=== PATIENT | male | born 1995 ===

== ENCOUNTER 2021-03-20 19:58 | Observation (INO) ==
[2021-03-20 20:34] LABS: Basophils # (auto) 0.04 K/uL (0-0.2); Basophils % (auto) 0.4 %; Eosinophils # (auto) 0.08 K/uL (0-0.5); Eosinophils % (auto) 0.8 %; Hematocrit (blood only) 45.6 % (42-52); Hemoglobin 15.3 g/dL (14.0-18.0); Immature Granulocytes # (auto) 0.04 K/uL (0.00-0.02); Immature Granulocytes % (auto) 0.4 %; Lymphocytes # (auto) 1.87 K/uL (1.2-3.4); Lymphocytes % (auto) 18.5 %; Mean Corpuscular Hemoglobin 28.6 pg (25-34); Mean Corpuscular Hgb Conc 33.6 g/dL (32-36); Mean Corpuscular Volume 85.2 fL (80-100); Monocytes # (auto) 0.69 K/uL (0.11-0.59); Monocytes % (auto) 6.8 %; Neutrophils # (auto) 7.38 K/uL (1.4-6.5); Neutrophils % (auto) 73.1 %; Platelet Count 370 K/uL (130-400); RDW Coefficient of Variation 13.4 % (11.5-14.5); RDW Standard Deviation 41.7 fL (36.4-46.3); Red Blood Count 5.35 M/uL (4.7-6.1)
[2021-03-20 20:45] LABS: Partial Thromboplastin Ratio 1.1; Partial Thromboplastin Time 27.9 Seconds (21.0-31.0); Prothrombin Time 10.4 Seconds (9.0-12.0)
--- NOTE | 2021-03-20 20:51 | XRay Report ---
XR chest 1V portable CLINICAL HISTORY: Chest Pain COMPARISON STUDY: No previous studies for comparison. FINDINGS: Lung volumes are normal. Lungs are clear. There is no pneumothorax or pleural effusion. The re is borderline enlargement of the cardiac silhouette. Mediastinal contours are normal. There is no evidence for pulmonary edema. IMPRESSION: 1. No acute cardiopulmonary findings. 2. Borderline enlargement of the cardiac silhouette. ACT 112: Negative or not required by law. Electronically signed by: Hiram Prescott M.D. 03/20/2021 8:50 PM
[2021-03-20 20:57] LABS: Alanine Aminotransferase 89 U/L (12-78); Aspartate Aminotransferase 49 U/L (15-37); BUN Creatinine Ratio 7.7 (10-20); Blood Urea Nitrogen 9 mg/dl (7-18); Calcium 9.4 mg/dl (8.5-10.1); Carbon Dioxide 26 mmol/L (21-32); Chloride 105 mmol/L (98-107); Creatinine Clr Calc Pharmacy 113.8 ml/min; Est GFR (African American) 103.4 ml/min; Est GFR (Non-African American) 89.2 ml/min; Glucose 114 mg/dl (70-99); Potassium 3.3 mmol/L (3.5-5.1); Sodium 137 mmol/L (136-145)
[2021-03-20 21:02] LABS: Albumin Globulin Ratio 0.9 (0.9-2); Alkaline Phosphatase 85 U/L (45-117); Bilirubin,Total 0.6 mg/dl (0.2-1); Globulin 4.3 gm/dl (2.5-4.0); Total Protein 8.3 gm/dl (6.4-8.2); Troponin I < 0.015 ng/ml (0-0.045)
[2021-03-20] MEDS ORDERED: METOPROLOL TARTRATE 1 MG/ML VIAL IV STA (21:19)
[2021-03-20] MEDS ORDERED: SODIUM CHLORIDE 0.9% 1000ML 500 ML IV ONE (21:19)
--- NOTE | 2021-03-20 21:20 | Emergency Department Note ---
Impression & Plan Precordial chest pain, SOB (shortness of breath), Abnormal ECG, Hypertension, Hypokalemia ED Provider Note NAME: ROMAIN BELLE AGE: 25 SEX: M : 1995 ARRIVES VIA: Walk-In INFORMANT: [Patient] ED PROVIDER(S): [Leonel Melendez MD] CHIEF COMPLAINT: Chest pain HISTORY OF PRESENT ILLNESS: The patient is a 25-year-old male who presents with mid sternal superior chest pain that radiates to the back. The pain is a 6/10 and has been with him all day since he woke up this morning, for over 12 hours. The pain does worsen if he climbs the stairs and he is slightly short of breath. There has been no cough. He has not had a fever. He has no known cardiac or lung history. The patient states that he was tested for Covid 2 days ago and was negative. The patient was told once before that his blood pressure was high, he is not taking medication for blood pressure though. REVIEW OF SYSTEMS: See HPI for pertinent positives and negatives. A total of ten systems were reviewed and were otherwise negative. PMHx/PSHx: See Below SOCIAL HISTORY: See Below. PHYSICAL EXAM: GENERAL: Patient is in no acute distress. HEENT: No acute trauma, normocephalic atraumatic, mucous membranes moist, no nasal congestion, no scleral icterus. NECK: No stridor, no adenopathy, no meningismus, trachea is midline. LUNGS: Clear to auscultation bilaterally, no wheeze, no rhonchi, breath sounds equal. HEART: Subtle systolic murmur, irregular rhythm, mildly tachycardic. Chest: Nontender chest wall. ABDOMEN: Soft, nontender, bowel sounds positive, no hernias, no peritonitis. EXTREMITIES: No cyanosis or edema, full range of motion of all the joints without pain or difficulty, no signs for acute trauma. NEUROLOGIC: Oriented x 3, no acute motor or sensory deficits, no focal weakness. SKIN: No rash, no jaundice, no diaphoresis. DIFFERENTIAL DIAGNOSIS: Cardiac ischemia, aortic dissection, pulmonary embolism, pneumothorax, pneumonia, pericarditis, myocarditis, esophageal rupture, GERD, cholecystitis, pancreatitis, musculoskeletal, as well as other pathologies. EMERGENCY DEPARTMENT COURSE/PROCEDURES: ECG: Indication was chest pain. The ECG shows what appears to be a sinus rhythm with type I second-degree AV block. The rate is 85. There are some inverted T waves in the inferior leads. There is no ST elevation. QTc is 454. No old ECGs available for comparison. Repeat EKG: Indication was chest pain. The ECG shows a sinus rhythm with a first-degree AV block. The rate is 83. There are some inverted T waves in the inferior leads as well as the lateral leads. There is no ST elevation. No PACs or PVCs. The QTc is 439. Compared to an ECG from earlier today, the type I second-degree AV block is no longer present. Continuous Cardiac Monitoring: An order was placed for continuous cardiac monitoring. The monitor shows a rate of 94 with sinus rhythm with a first- degree AV block and PACs. Critical Care Note: I have personally spent 51 minutes of critical care time in the direct management of this patient. This includes bedside care, interpretation of diagnostic studies, and testing, discussion with consultants, patient, and family members, and other required patient management activities. This 51 minutes is in excess of all separately billable procedures. MEDICAL DECISION MAKING: There is no leukocytosis or concerning anemia. There is a normal platelet count. No coagulopathy. Potassium was somewhat low at 3.3. No kidney failure. There were some subtle liver enzyme elevations however, the bilirubin was normal. Patient appeared to be in a euthyroid state. Lyme disease testing returned negative. ECG initially showed a sinus rhythm with a type I second-degree AV block. Repeat EKG later showed a sinus rhythm with a long first-degree AV block. Both ECG showed some inverted T waves, no ST elevation. Cardiac enzyme testing x1 is not consistent with acute cardiac injury. Chest x- ray did not show CHF or pneumonia. Chest CT did not show PE or evidence for aortic dissection. There was no pneumonia. The patient presents with chest pain which I cannot reproduce. He was short of breath. He has an abnormal EKG. He presented hypertensive. There were some rhythm disturbances as noted above. I discussed the case with cardiology. The patient is being hospitalized for further work-up, care and monitoring. The patient was given IV potassium and IV saline. He was given a dose of IV Lopressor. After the IV Lopressor, his blood pressure improved, his type I second-degree AV block resolved and a first-degree AV block was noted. I spoke to the patient, I talked with case management. The on-call hospitalist was consulted. Past Med/Surg History Medical History Hypertension Social History Smoking Status: Never smoker Feels Safe at Home: Yes Allergies Allergies Allergy/AdvReac Type Severity Reaction Status Date / Time Penicillins AdvReac Unknown Unverified 03/20/21 21:41 Home Meds Home Medications Medication Instructions Recorded Confirmed fluoxetine 20 mg capsule 40 mg PO DAILY 03/20/21 03/20/21 Results & Data (ED) Vital Signs Vital Signs - 24 hr 03/20/21 20:03 03/20/21 21:19 03/20/21 23:00 Temperature 37.2 C Temperature Source Temporal Artery Scan Pulse Rate 102 H Pulse Rate [Right] 94 H 81 Respiratory Rate 16 18 20 Respiratory Effort / Characteristics Non-Labored Non-Labored Spontaneous Respiratory Depth Normal Normal Blood Pressure 162/105 H Blood Pressure [Right Arm] 164/102 H 132/75 Blood Pressure Mean 124 Blood Pressure Mean [Right Arm] 122 94 Blood Pressure Position [Right Arm] Sitting Pulse Oximetry 97 99 100 Oxygen Delivery Method Room Air Room Air Room Air Sepsis Recent Fever Within 48 Hours No Sepsis New/Unexplained Change in Mental Status N/A Sepsis Action Taken by Nursing No Action Required Home Medications Current Medication List: was personally reviewed by me Laboratory Data Attestation: I reviewed the patient's lab results. Result diagrams: 03/20/21 20:23 03/20/21 20:23 Lab Results 03/20/21 03/20/21 03/20/21 Range/Units 20:23 20:23 20:23 WBC 10.10 (4.8-10.8) K/uL RBC 5.35 (4.7-6.1) M/uL Hgb 15.3 (14.0-18.0) g/dL Hct 45.6 (42-52) % MCV 85.2 (80-100) fL MCH 28.6 (25-34) pg MCHC 33.6 (32-36) g/dL RDW Std Deviation 41.7 (36.4-46.3) fL RDW Coeff of Leslie 13.4 (11.5-14.5) % Plt Count 370 (130-400) K/uL MPV 9.0 (7.4-10.4) fL Immature Gran % (Auto) 0.4 % Neut % (Auto) 73.1 % Lymph % (Auto) 18.5 % Erath % (Auto) 6.8 % Eos % (Auto) 0.8 % Baso % (Auto) 0.4 % Neut # (Auto) 7.38 H (1.4-6.5) K/uL Lymph # (Auto) 1.87 (1.2-3.4) K/uL Erath # (Auto) 0.69 H (0.11-0.59) K/uL Eos # (Auto) 0.08 (0-0.5) K/uL Baso # (Auto) 0.04 (0-0.2) K/uL Immature Gran # (Auto) 0.04 H (0.00-0.02) K/uL PT 10.4 (9.0-12.0) Seconds INR 1.0 (0.9-1.1) APTT 27.9 (21.0-31.0) Seconds PTT Ratio 1.1 Sodium 137 (136-145) mmol/L Potassium 3.3 L (3.5-5.1) mmol/L Chloride 105 (98-107) mmol/L Carbon Dioxide 26 (21-32) mmol/L Anion Gap 6.0 (3-11) BUN 9 (7-18) mg/dl Creatinine 1.15 (0.6-1.4) mg/dl Est Cr Clr Drug Dosing 113.8 ml/min Est GFR ( Amer) 103.4 ml/min Est GFR (Non-Af Amer) 89.2 ml/min BUN/Creatinine Ratio 7.7 L (10-20) Glucose 114 H (70-99) mg/dl Calcium 9.4 (8.5-10.1) mg/dl Magnesium 2.2 (1.8-2.4) mg/dl Total Bilirubin 0.6 (0.2-1) mg/dl AST 49 H (15-37) U/L ALT 89 H (12-78) U/L Alkaline Phosphatase 85 (45-117) U/L Troponin I < 0.015 (0-0.045) ng/ml Total Protein 8.3 H (6.4-8.2) gm/dl Albumin 4.0 (3.4-5.0) gm/dl Globulin 4.3 H (2.5-4.0) gm/dl Albumin/Globulin Ratio 0.9 (0.9-2) TSH 3.950 (0.300-4.500) uIu/ml Lyme Disease IgG Ab (Negative) Lyme Disease IgM Ab (Negative) 03/20/21 03/20/21 Range/Units 20:23 20:23 WBC (4.8-10.8) K/uL RBC (4.7-6.1) M/uL Hgb (14.0-18.0) g/dL Hct (42-52) % MCV (80-100) fL MCH (25-34) pg MCHC (32-36) g/dL RDW Std Deviation (36.4-46.3) fL RDW Coeff of Leslie (11.5-14.5) % Plt Count (130-400) K/uL MPV (7.4-10.4) fL Immature Gran % (Auto) % Neut % (Auto) % Lymph % (Auto) % Erath % (Auto) % Eos % (Auto) % Baso % (Auto) % Neut # (Auto) (1.4-6.5) K/uL Lymph # (Auto) (1.2-3.4) K/uL Erath # (Auto) (0.11-0.59) K/uL Eos # (Auto) (0-0.5) K/uL Baso # (Auto) (0-0.2) K/uL Immature Gran # (Auto) (0.00-0.02) K/uL PT (9.0-12.0) Seconds INR (0.9-1.1) APTT (21.0-31.0) Seconds PTT Ratio Sodium (136-145) mmol/L Potassium (3.5-5.1) mmol/L Chloride (98-107) mmol/L Carbon Dioxide (21-32) mmol/L Anion Gap (3-11) BUN (7-18) mg/dl Creatinine (0.6-1.4) mg/dl Est Cr Clr Drug Dosing ml/min Est GFR ( Amer) ml/min Est GFR (Non-Af Amer) ml/min BUN/Creatinine Ratio (10-20) Glucose (70-99) mg/dl Calcium (8.5-10.1) mg/dl Magnesium Cancelled (1.8-2.4) mg/dl Total Bilirubin (0.2-1) mg/dl AST (15-37) U/L ALT (12-78) U/L Alkaline Phosphatase (45-117) U/L Troponin I (0-0.045) ng/ml Total Protein (6.4-8.2) gm/dl Albumin (3.4-5.0) gm/dl Globulin (2.5-4.0) gm/dl Albumin/Globulin Ratio (0.9-2) TSH Cancelled (0.300-4.500) uIu/ml Lyme Disease IgG Ab Negative (Negative) Lyme Disease IgM Ab Negative (Negative) Administered Medications Discontinued Medications Sodium Chloride (Nss 1000ml) 500 mls @ 999 mls/hr IV .Q31M ONE Stop: 03/20/21 21:49 Last Infusion: 03/20/21 22:04 Dose: 0 mls/hr Documented by: [id number] Admin: 03/20/21 21:31 Dose: 999 mls/hr Documented by: [id number] Potassium Chloride (K Rafael / Wtr) 10 meq in 100 mls @ 100 mls/hr IV ONE ONE Stop: 03/20/21 22:34 Last Infusion: 03/20/21 22:54 Dose: 0 mls/hr Documented by: [id number] Admin: 03/20/21 21:41 Dose: 100 mls/hr Documented by: [id number] Ioversol (Optiray 320 125ml) 120 ml IV ONCE ONE Stop: 03/20/21 21:49 Last Admin: 03/20/21 21:48 Dose: 120 ml Documented by: [id number] Metoprolol Tartrate (Metoprolol Tartrate 1 Mg/Ml Vial) 5 mg IV NOW STA Stop: 03/20/21 21:20 Last Admin: 03/20/21 21:31 Dose: 5 mg Documented by: [id number] Imaging Data Radiologist's Impression: Chest X-Ray 03/20/21 20:07 XR chest 1V portable CLINICAL HISTORY: Chest Pain COMPARISON STUDY: No previous studies for comparison. FINDINGS: Lung volumes are normal. Lungs are clear. There is no pneumothorax or pleural effusion. There is borderline enlargement of the cardiac silhouette. Mediastinal contours are normal. There is no evidence for pulmonary edema. IMPRESSION: 1. No acute cardiopulmonary findings. 2. Borderline enlargement of the cardiac silhouette. ACT 112: Negative or not required by law. Electronically signed by: Hiram Prescott M.D. 03/20/2021 8:[address] for PE: There is no pulmonary embolus. The thoracic aorta is nondilated. There is no aneurysm or dissection. No mediastinal mass or lymphadenopathy is seen. The lungs are clear, no consolidation. Skeletal structures are unremarkable. No pericardial effusion. Discharge Plan Visit Data Chief Complaint: Chest Pain Stated Complaint: CHEST PAIN/DISCOMFORT Discharge Problem: Precordial chest pain, SOB (shortness of breath), Abnormal ECG, Hypertension, Hypokalemia Patient Disposition: Admitted As Inpatient Condition: Fair Forms Stand Alone Forms: [facility] [employer] Prescriptions Prescriptions: No Action fluoxetine 20 mg Capsule 40 mg PO DAILY RF: 0 Referrals Referrals: PCP,NO [Primary Care Provider] -
[2021-03-20] MEDS ORDERED: POTASSIUM CHLORIDE / WTR 10 MEQ/100 ML PLCT IV ONE (21:35)
[2021-03-20 21:47] LABS: Magnesium 2.2 mg/dl (1.8-2.4)
[2021-03-20] MEDS ORDERED: OPTIRAY 320 125ml IV ONE (21:48)
[2021-03-20 22:14] LABS: Lyme Ab IgG w/WB Rflx Negative (Negative); Lyme Ab IgM w/WB Rflx Negative (Negative)
[2021-03-21 00:32] LABS: C Reactive Protein 6.22 mg/dl (0-0.29)
[2021-03-21] MEDS ORDERED: POTASSIUM CHLORIDE CRTAB 20 MEQ TABCR PO STA (01:16)
--- NOTE | 2021-03-21 01:17 | History & Physical Report ---
Date of Service March 21, 2021 Assessment & Plan (1) Abnormal ECG: Plan: Gilbert is a 25 yo male who presented for evaluation of chest pain, found to have varying AV dae blockade on surveillance monitor. - EKG on arrival showing second degree AV dae block Mobitz type I - repeat EKG showing 1st degree AV dae block - echo ordered to assess for possible cardiomyopathy - electrolytes corrected - cardiology consult placed - continue cardiac monitoring - as for etiology, lyme testing negative. Anaplasmosis labs ordered. It is possible rash on R upper axillae is a resolving erythema migrans. - preceding fever and pharyngitis make viral myocarditis a possibility, although initial trop was undetectable (2) Precordial chest pain: Plan: - trop on admission undetectable. Trend serial levels x2 - history not consistent with ACS - Chest CTA ruled out PE, aortic pathology - suspect MSK vs. GI origin - tylenol prn (3) Elevated liver enzymes: Plan: - AST elevated to 49, ALT to 89 - uncertain if this is related to ETOH use, fatty liver, viral infection - trend CMP (4) Hypokalemia: Plan: - level 3.3 on admission - 10meQ IV given in ED. 40mg PO supplement ordered on admission - on admission, BP was 138/78 - you would normally expect a low BP in the face of a new arrhythmia, however low K combined with relative hypertension in this scenario could be concerning for hyperaldosteronism. Consider renin and aldosterone levels. Another possibility is low is low due to episode of emesis this afternoon - trend BMP (5) Alcohol use disorder: Plan: - started on AWSS protocol with PO ativan prn - thiamine and folate supplementation - recommend education on cutting back/cessation (6) Anxiety: Plan: - continue home dose prozac DVT ppx: Low risk, ambulatory Diet: Regular Dispo: Med/tele Code: Full, I discussed with patient History of Present Illness Primary Care Provider: NO PCP Gilbert is a 25 yo M [employer] Student who presented for new onset chest pain. He first noticed it after waking up on the morning of 03/20/21. It was located in the center of the chest and seemed to radiate through to the back. It seemed to worsen if he exerted himself (ie climb a set of stairs) and it was associated with dyspnea. He also vomited x 1 today (non-bloody). On 03/17/21, he did report a fever and sore throat. Although he is fully vaccinated, he got himself tested for COVID 19 on Tuesday03/18/21, the results of which returned negative. He denies any associated cough, congestion, diarrhea. He does report a recent rash, which appeared ~ 2 weeks ago, near his left armpit. He described it as a red citizen [place]. He went to an urgent care facility and was told it looked like an abscess - he was given a script for an antibiotic which he never finished because it upset his stomach. The rash has mostly faded since onset. He denies any joint pains. He cannot recall any recent tick bite PMHx: He was diagnosed with muscular dystrophy as a child; has not been an issue in > 8-10 years. No underlying cardiopulmonary issues. 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 He does drink 6 malt liquors per night. No previous history of etoh withdrawal. He vapes; no cigarette smoking, no marijuana, no recreational drugs. Family Hx: Mother had issues with etoh use. No family history of heart disease. In the ED, he was afebrile with a normal vitals. His WBC was normal. Coags WNL. ESR was elevated to 62. Kidney function normal. K low at 3.3. AST elevated to 49, ALT to 89. TSH WNL. Trop undetectable. Lyme neg. COVID 19 neg. EKG # 1 showing second degree AV dae block, type I. No ST segment changes. Normal QTc. Repeat EKG showing 1st degree AV dae block. CXR was unremarkable. Chest CTA showing no PE, no aortic aneurysm or dissection, no consolidation in lungs. He was given 500 cc NSS, 5mg IV metoprolol tartrate, 10mEq KCl. Allergies Allergy/AdvReac Type Severity Reaction Status Date / Time Penicillins AdvReac Unknown Unverified 03/20/21 21:41 Home Medications Medication Instructions Recorded Confirmed Type fluoxetine 20 mg capsule 40 mg PO DAILY 03/20/21 03/20/21 History Past Med/Surg History Medical History Hypertension Social History Smoking Status: Never smoker Hx Alcohol Use: Yes Alcohol type: other Hx Substance Use: No Preferred Language: Maori Current Living Situation: Other Current Living Situation Comment: roommate Feels Safe at Home: Yes Assistive Devices: Glasses Review of Systems Review of Systems: All systems reviewed & are unremarkable except as noted in HPI & below Physical Exam Constitutional: WD/WN, vitals as above + obese and cooperative; no acute distress Eyes: + anicteric sclerae ENMT: external ear and nose normal, oropharynx normal Neck: normal visual inspection and trachea midline Respiratory: normal respiratory effort, lungs clear to auscultation Cardiovascular: Rate/Rhythm: regular rate; + abnormal rhythm Heart Sounds: normal S1, normal S2 and + murmur (sytolic; best appreciated in pulmonic area ) Extremities: no pedal edema chest wall non-tender Gastrointestinal (Abdomen): normal bowel sounds, soft, nontender, no hepatosplenomegaly Musculoskeletal: Head/Neck/Chest: normocephalic and head atraumatic Skin: + rash (left axillae area, rasied ertyhematous rim ) Neurologic: moves all extremities Motor/Sensory: no tremor Psychiatric: A+Ox3, euthymic affect Results & Data Results & Data ([facility]) Vital Signs (Past 12 Hours) Vital Signs Temp Pulse Pulse Resp BP BP Pulse Ox 03/21/21 00:58 68 20 129/79 98 03/20/21 23:00 81 20 132/75 100 03/20/21 21:19 94 H 18 164/102 H 99 03/20/21 20:03 37.2 C 102 H 16 162/105 H 97 Supervising Physician Co-Signing Physician Notes Attending addendum: I have physically seen this patient, have supervised the medical residents activities, and agree with the H&P unless as otherwise noted. Assessment and Plan: Second-degree Mobitz 1 Wenckebach heart block- The patient will be admitted to telemetry for serial cardiac enzymes, serial EKG's, cardiac rhythm monitoring and a 2-D echocardiogram with Dopplers. Noted on initial EKG, with follow-up EKG showing first-degree heart block. ED monitor continues to show second-degree type I Lyme testing negative, will add anaplasmosis testing Potassium 3.3 upon admission, will be optimized both orally and IV, and recheck in a.m. We will do CTA chest to assess for PE, but also to assess for pericardial effusion and inflammatory process Consult cardiology Remaining orders and notations as noted Resident Activity Tracking Resident Involvement: Resident Care Provided Care Provided: Adult [facility] Medicine
[2021-03-21] MEDS ORDERED: ZOLPIDEM TARTRATE 5 MG TAB PO PRN (02:34)
[2021-03-21] MEDS ORDERED: LORazepam 1 MG TAB PO PRN (02:34)
[2021-03-21] MEDS ORDERED: ACETAMINOPHEN 325 MG TAB PO PRN (02:34)
[2021-03-21] MEDS ORDERED: ONDANSETRON INJ 2 MG/ML 2 ML VIAL IV PRN (02:34)
--- NOTE | 2021-03-21 06:46 | Hospitalist Progress Note ---
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 - EKG on arrival showing second degree AV dae block Mobitz type I - repeat EKG showing 1st degree AV dae block - echo ordered to assess for possible cardiomyopathy - electrolytes corrected - cardiology consult placed - continue cardiac monitoring - as for etiology, lyme testing negative. Anaplasmosis labs ordered. It is possible rash on R upper axillae is a resolving erythema migrans. - preceding fever and pharyngitis make viral myocarditis a possibility, although initial trop was undetectable (2) Precordial chest pain: Plan: - trop on admission undetectable. Trend serial levels x2 - history not consistent with ACS - Chest CTA ruled out PE, aortic pathology - suspect MSK vs. GI origin - tylenol prn (3) Elevated liver enzymes: Plan: - AST elevated to 49, ALT to 89 - uncertain if this is related to ETOH use, fatty liver, viral infection - trend CMP (4) Hypokalemia: Plan: - level 3.3 on admission - 10meQ IV given in ED. 40mg PO supplement ordered on admission - on admission, BP was 138/78 - you would normally expect a low BP in the face of a new arrhythmia, however low K combined with relative hypertension in this scenario could be concerning for hyperaldosteronism. Consider renin and aldosterone levels. Another possibility is low is low due to episode of emesis this afternoon - trend BMP (5) Alcohol use disorder: Plan: - started on AWSS protocol with PO ativan prn - thiamine and folate supplementation - recommend education on cutting back/cessation (6) Anxiety: Plan: - continue home dose prozac DVT ppx: Low risk, ambulatory Diet: Regular Dispo: Med/tele Code: Full, I discussed with patient Admission and Anticipated Discharge Date Admission Date: March 21, 2021 Results & Data Results & Data ([facility]) Vital Signs (Past 12 Hours) Vital Signs Temp Pulse Pulse Resp BP BP Pulse Ox 03/21/21 04:46 74 03/21/21 03:35 36.5 C 74 20 120/79 98 03/21/21 02:47 36.9 C 87 18 138/78 99 03/21/21 00:58 68 20 129/79 98 03/20/21 23:00 81 20 132/75 100 03/20/21 21:19 94 H 18 164/102 H 99 03/20/21 20:03 37.2 C 102 H 16 162/105 H 97
[2021-03-21 07:51] LABS: Alanine Aminotransferase 81 U/L (12-78); Albumin Globulin Ratio 0.9 (0.9-2); Albumin Level 3.3 gm/dl (3.4-5.0); Alkaline Phosphatase 72 U/L (45-117); Aspartate Aminotransferase 51 U/L (15-37); BUN Creatinine Ratio 9.2 (10-20); Bilirubin,Total 0.7 mg/dl (0.2-1); Blood Urea Nitrogen 9 mg/dl (7-18); Calcium 8.5 mg/dl (8.5-10.1); Carbon Dioxide 27 mmol/L (21-32); Chloride 108 mmol/L (98-107); Creatinine Clr Calc Pharmacy 130.8 ml/min; Est GFR (African American) 122.4 ml/min; Est GFR (Non-African American) 105.6 ml/min; Globulin 3.7 gm/dl (2.5-4.0); Glucose 98 mg/dl (70-99); Potassium 3.7 mmol/L (3.5-5.1); Sodium 139 mmol/L (136-145); Troponin I < 0.015 ng/ml (0-0.045)
--- NOTE | 2021-03-21 08:37 | CT Scan Report ---
CT ANGIOGRAM OF THE CHEST CLINICAL HISTORY: PE COMPARISON STUDY: No previous studies for comparison. TECHNIQUE: Following the IV administration of 119 mL of Optiray, CT angiogram of the thorax was perfo rmed from the thoracic inlet to the lung bases utilizing the pulmonary embolus protocol. Images are r eviewed in the axial, sagittal, and coronal planes. IV contrast was administered without complication . MIP imaging was performed. A dose lowering technique was utilized adhering to the principles of AL KAILASH. CT DOSE: 913.35 mGy.cm FINDINGS: No definite filling defects are seen within main, lobar or segmental pulmonary arteries however opaci fication within main pulmonary artery is suboptimal for adequate evaluation for pulmonary embolus. Pulmonary artery is normal in caliber. No evidence of right heart strain. Heart is normal in size without pericardial effusion or coronary calcifications. There are few prominent lymph nodes within left axilla measuring up to 1.4 cm in short axis (4/149). Supra clavicle or internal mammary lymph nodes are not enlarged. Mottled mediastinal lymph nodes are not enlarged. Tracheobronchial tree is patent. No large infiltrates or consolidative lesions are seen. No pleural effusion demonstrated. Thoracic aorta is normal in caliber without evidence of dissection or aneurysmal dilatation. Limited evaluation of upper abdominal viscera shows hepatic steatosis and no evidence of acute intra- abdominal process. Osseous structures: Unremarkable. IMPRESSION: 1. No definite acute pulmonary embolus is seen however opacification within main pulmonary artery is suboptimal for adequate evaluation for pulmonary embolus. No secondary signs of pulmonary embolus. 2. Slightly enlarged left axillary lymph nodes, could be reactive. Please correlate above-mentioned findings with prior history. 3. No infiltrates or consolidative lesions. 4. Hepatic steatosis. 5. The rest of findings as above. 6. Normal aorta. ACT 112: Negative or not required by law. The above report was generated using voice recognition software. It may contain grammatical, syntax o r spelling errors. Electronically signed by: Adela Gibson DO 03/21/2021 8:36 AM
[2021-03-21] MEDS ORDERED: THIAMINE HCL 100 MG TAB PO SCH (09:00)
[2021-03-21] MEDS ORDERED: FLUoxetine HCL 20 MG CAP PO SCH (09:00)
[2021-03-21] MEDS ORDERED: FOLIC ACID 1 MG TAB PO SCH (09:00)
--- NOTE | 2021-03-21 10:01 | XCELERA ---
[id number] \\[id number]
--- NOTE | 2021-03-21 12:13 | Electrocardiogram Report ---
Test Reason : Blood Pressure : / mmHG Vent. Rate : 085 BPM Atrial Rate : 032 BPM P-R Int : 252 ms QRS Dur : 094 ms QT Int : 382 ms P-R-T Axes : 047 099 032 degrees QTc Int : 454 ms Sinus rhythm with 2nd degree Mobitz 1 conduction Rightward axis Abnormal ECG No previous ECGs available Confirmed by Rc Lawson ([id number]) on 03/21/2021 12:12:42 PM Referred By: REFERRED SELF Confirmed By:Surjit Lawson
--- NOTE | 2021-03-21 12:15 | Electrocardiogram Report ---
Test Reason : Blood Pressure : / mmHG Vent. Rate : 083 BPM Atrial Rate : 083 BPM P-R Int : 288 ms QRS Dur : 088 ms QT Int : 374 ms P-R-T Axes : 050 115 026 degrees QTc Int : 439 ms Poor data quality, interpretation may be adversely affected Sinus rhythm with 1st degree A-V block Right axis deviation Nonspecific ST abnormality Abnormal ECG When compared with ECG of 20-MAR-2021 20:11, (unconfirmed) Premature supraventricular complexes are no longer Present Inverted T waves have replaced nonspecific T wave abnormality in Inferior leads Nonspecific T wave abnormality now evident in Anterior leads Confirmed by Rc Lawson ([id number]) on 03/21/2021 12:15:15 PM Referred By: REFERRED SELF Confirmed By:Surjit Lawson
--- NOTE | 2021-03-21 12:31 | Cardiology Consultation ---
Date of Consultation March 21, 2021 Assessment & Plan (1) Precordial chest pain: (2) Abnormal EC. Chest pain: Unclear etiology. Nearly resolved. Possibly related to a viral illness. Certainly not related to cardiac ischemia or myocarditis based on his laboratory studies. I do not think it requires any additional cardiac testing in the absence of recurrent or worsening symptoms. 2. Abnormal EKG: The patient has AV dae conduction disease. This would be unusual for someone in his demographic. Occasionally with well trained athletes will see EKG findings of this nature, but he has not been exercising regularly for some time. Additionally, Lyme disease would produce similar findings, but testing so far has been normal, no evidence of tick-borne illness. His history of muscular dystrophy is concerning. Seems unusual that his symptoms are so mild currently. However muscular dystrophy would produce conduction disease of this nature and even in the absence of symptoms related to conduction disease PN indication for permanent pacing. At this point we will need to research his diagnosis of muscular dystrophy. If he truly carries this diagnosis and I would recommend permanent pacemaker implantation. This could be performed as an outpatient as he is not currently manifesting symptoms associated with higher degrees of conduction disease. However, things can progress and unpredictable fashion and will need to monitor this closely. If he does not appear to have other symptoms consistent with Lyme disease. I would suspect that Lyme carditis would also produce some additional laboratory abnormalities. However, we need to maintain a high level of suspicion for Lyme disease and consider repeat testing. History of Present Illness Reason for Consultation: Chest pain, abnormal EKG Requesting Physician: Albertina Attending Physician: Deacon Bond, History of Present Illness Patient is a 25-year-old gentleman with reported history of muscular dystrophy, depression and hypertension who presented to the emergency room with complaints of chest discomfort. It seems that for approximately 24 hours the patient did experience some symptoms of precordial chest pain. This appeared to be localized to an area around the sternal notch. Seem to be worse with deep inspiration and ascending stairs. Was not overtly positional in nature. It varied in intensity but seem to be present for several hours. There was no radiation to the back, neck or arms. He cannot recall similar episodes in the past. He has had some other symptoms recently including coughing spells and subjective fevers. In the emergency room he was discovered to have an abnormal EKG indicative of conduction disease. The patient states that he is very sedentary. He does not exercise regularly but does not have notable difficulty with activity. He denied weakness associated with activity such as climbing stairs or exercise. He states that as a child he had muscular dystrophy in for a period of time required a walker, a stroller and wheelchair. However, with weight training he was able to improve his muscle function and has not required assistance in approximately a decade. He denies symptoms of dizziness or lightheadedness. He cannot recall suffering an episode of syncope. Allergies Allergy/AdvReac Type Severity Reaction Status Date / Time Penicillins AdvReac Unknown Unverified 03/20/21 21:41 Home Medications Medication Instructions Recorded Confirmed Type fluoxetine 20 mg capsule 40 mg PO DAILY 03/20/21 03/20/21 History Patient History Medical History Hypertension Social History Smoking Status: Never smoker Hx Alcohol Use: Yes Alcohol type: other Hx Substance Use: No Preferred Language: Ecuadorean Current Living Situation: Other Current Living Situation Comment: roommate Feels Safe at Home: Yes Assistive Devices: Glasses Review of Systems Review of Systems: All systems reviewed & are unremarkable except as noted in HPI & below Chest pain nearly resolved. Not ambulatory at in his room. No muscle aches or pains. Physical Exam Physical Exam: The patient is alert and oriented. Mood and affect appeared normal. He answered all questions appropriately. HEENT: Pupils are equal and reactive to light and accommodation. Extraocular movements are intact. The sclerae are anicteric. Neuro: Cranial nerves intact Neck: Patient's neck is supple. He has palpable carotid pulses bilaterally without bruits on auscultation. There is no evidence of jugular venous distention. The thyroid is not enlarged. Lungs: Clear to auscultation bilaterally. He has good air movement without use of accessory muscles. No rales wheezes or rhonchi. Cardiac: Heart demonstrates a regular rate and rhythm. Normal S1 and S2. No murmurs on examination. Pulses: The patient has palpable radial pulses bilaterally that are equal in intensity Extremities: There was no evidence of hypoperfusion. There is no cyanosis or clubbing. There is no edema. Skin: I did not appreciate any rashes on examination today. Results & Data ([facility]) Vital Signs (Past 12 Hours) Vital Signs Temp Pulse Pulse Resp BP Pulse Ox 03/21/21 11:20 37.1 C 76 18 131/81 98 03/21/21 07:54 84 03/21/21 07:24 36.8 C 88 18 140/82 98 03/21/21 04:46 74 03/21/21 03:35 36.5 C 74 20 120/79 98 03/21/21 02:47 36.9 C 87 18 138/78 99 03/21/21 00:58 68 20 129/79 98 Laboratory Results Abnormal Lab Results 03/20/21 03/20/21 03/20/21 20:23 20:23 20:23 WBC 10.10 RBC 5.35 Hgb 15.3 Hct 45.6 MCV 85.2 MCH 28.6 MCHC 33.6 RDW Std Deviation 41.7 RDW Coeff of Leslie 13.4 Plt Count 370 MPV 9.0 Immature Gran % (Auto) 0.4 Neut % (Auto) 73.1 Lymph % (Auto) 18.5 Snyder % (Auto) 6.8 Eos % (Auto) 0.8 Baso % (Auto) 0.4 Neut # (Auto) 7.38 H Lymph # (Auto) 1.87 Snyder # (Auto) 0.69 H Eos # (Auto) 0.08 Baso # (Auto) 0.04 Immature Gran # (Auto) 0.04 H Absolute Nucleated RBC 0.00 Nucleated RBC % (auto) 0.0 ESR PT 10.4 INR 1.0 APTT 27.9 PTT Ratio 1.1 Sodium 137 Potassium 3.3 L Chloride 105 Carbon Dioxide 26 Anion Gap 6.0 BUN 9 Creatinine 1.15 Est Cr Clr Drug Dosing 113.8 Est GFR ( Amer) 103.4 Est GFR (Non-Af Amer) 89.2 BUN/Creatinine Ratio 7.7 L Glucose 114 H Calcium 9.4 Magnesium 2.2 Total Bilirubin 0.6 AST 49 H ALT 89 H Alkaline Phosphatase 85 Troponin I < 0.015 C-Reactive Protein 6.22 H Total Protein 8.3 H Albumin 4.0 Globulin 4.3 H Albumin/Globulin Ratio 0.9 TSH 3.950 Specimen Hemolysis Anaplasma Smear See Comment Lyme Disease IgG Ab Lyme Disease IgM Ab COVID-19 Eval Order SARS-CoV-2 (PCR) 03/20/21 03/20/21 03/20/21 20:23 20:23 20:23 WBC RBC Hgb Hct MCV MCH MCHC RDW Std Deviation RDW Coeff of Leslie Plt Count MPV Immature Gran % (Auto) Neut % (Auto) Lymph % (Auto) Snyder % (Auto) Eos % (Auto) Baso % (Auto) Neut # (Auto) Lymph # (Auto) Snyder # (Auto) Eos # (Auto) Baso # (Auto) Immature Gran # (Auto) Absolute Nucleated RBC Nucleated RBC % (auto) ESR 62 H PT INR APTT PTT Ratio Sodium Potassium Chloride Carbon Dioxide Anion Gap BUN Creatinine Est Cr Clr Drug Dosing Est GFR ( Amer) Est GFR (Non-Af Amer) BUN/Creatinine Ratio Glucose Calcium Magnesium Cancelled Total Bilirubin AST ALT Alkaline Phosphatase Troponin I C-Reactive Protein Total Protein Albumin Globulin Albumin/Globulin Ratio TSH Cancelled Specimen Hemolysis Anaplasma Smear Lyme Disease IgG Ab Negative Lyme Disease IgM Ab Negative COVID-19 Eval Order SARS-CoV-2 (PCR) 03/21/21 03/21/21 03/21/21 00:13 00:13 07:06 WBC RBC Hgb Hct MCV MCH MCHC RDW Std Deviation RDW Coeff of Leslie Plt Count MPV Immature Gran % (Auto) Neut % (Auto) Lymph % (Auto) Snyder % (Auto) Eos % (Auto) Baso % (Auto) Neut # (Auto) Lymph # (Auto) Snyder # (Auto) Eos # (Auto) Baso # (Auto) Immature Gran # (Auto) Absolute Nucleated RBC Nucleated RBC % (auto) ESR PT INR APTT PTT Ratio Sodium 139 Potassium 3.7 Chloride 108 H Carbon Dioxide 27 Anion Gap 4.0 BUN 9 Creatinine 1.00 Est Cr Clr Drug Dosing 130.8 Est GFR ( Amer) 122.4 Est GFR (Non-Af Amer) 105.6 BUN/Creatinine Ratio 9.2 L Glucose 98 Calcium 8.5 Magnesium Total Bilirubin 0.7 AST 51 H ALT 81 H Alkaline Phosphatase 72 Troponin I < 0.015 C-Reactive Protein Total Protein 7.0 Albumin 3.3 L Globulin 3.7 Albumin/Globulin Ratio 0.9 TSH Specimen Hemolysis Anaplasma Smear Lyme Disease IgG Ab Lyme Disease IgM Ab COVID-19 Eval Order Covid19 at [facility] SARS-CoV-2 (PCR) NEGATIVE Diagnostic Findings Echocardiogram obtained today did not reveal any LV dysfunction. Normal systolic function wall motion. No valvular abnormalities. PG Care Time/CCT Total # of Minutes Spent Total Time Spent with Patient: Total time spent is greater than 50% in coordination of care (as documented) at patient's floor/unit and/or counseling patient: Coding Level of Care Code 10786 Office/OBS Consult Lvl 4 Diagnoses Precordial chest pain R07.2 Abnormal ECG R94.31
--- NOTE | 2021-03-21 14:05 | Discharge Summary ---
Date of Service March 21, 2021 Admission HPI Per Admitting Provider Gilbert is a 25 yo M [employer] Student who presented for new onset chest pain. He first noticed it after waking up on the morning of 03/20/21. It was located in the center of the chest and seemed to radiate through to the back. It seemed to worsen if he exerted himself (ie climb a set of stairs) and it was associated with dyspnea. He also vomited x 1 today (non-bloody). On 03/17/21, he did report a fever and sore throat. Although he is fully vaccinated, he got himself tested for COVID 19 on Tuesday03/18/21, the results of which returned negative. He denies any associated cough, congestion, diarrhea. He does report a recent rash, which appeared ~ 2 weeks ago, near his left armpit. He described it as a red eyak. He went to an urgent care facility and was told it looked like an abscess - he was given a script for an antibiotic which he never finished because it upset his stomach. The rash has mostly faded since onset. He denies any joint pains. He cannot recall any recent tick bite PMHx: He was diagnosed with muscular dystrophy as a child; has not been an issue in > 8-10 years. No underlying cardiopulmonary issues. 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 He does drink 6 malt liquors per night. No previous history of etoh withdrawal. He vapes; no cigarette smoking, no marijuana, no recreational drugs. Family Hx: Mother had issues with etoh use. No family history of heart disease. In the ED, he was afebrile with a normal vitals. His WBC was normal. Coags WNL. ESR was elevated to 62. Kidney function normal. K low at 3.3. AST elevated to 49, ALT to 89. TSH WNL. Trop undetectable. Lyme neg. COVID 19 neg. EKG # 1 showing second degree AV dae block, type I. No ST segment changes. Normal QTc. Repeat EKG showing 1st degree AV dae block. CXR was unremarkable. Chest CTA showing no PE, no aortic aneurysm or dissection, no consolidation in lungs. He was given 500 cc NSS, 5mg IV metoprolol tartrate, 10mEq KCl. Admission Exam Per Admitting Provider Constitutional: WD/WN, vitals as above + obese and cooperative; no acute distress Eyes: + anicteric sclerae ENMT: external ear and nose normal, oropharynx normal Neck: normal visual inspection and trachea midline Respiratory: normal respiratory effort, lungs clear to auscultation Cardiovascular: Rate/Rhythm: regular rate; + abnormal rhythm Heart Sounds: normal S1, normal S2 and + murmur (sytolic; best appreciated in pulmonic area ) Extremities: no pedal edema chest wall non-tender Gastrointestinal (Abdomen): normal bowel sounds, soft, nontender, no hepatosplenomegaly Musculoskeletal: Head/Neck/Chest: normocephalic and head atraumatic Skin: + rash (left axillae area, rasied ertyhematous rim ) Neurologic: moves all extremities Motor/Sensory: no tremor Psychiatric: AOx3, euthymic affect Principal Diagnosis Rib strain Discharge Exam Constitutional: well-appearing, no acute distress HEENT: NCAT, no conjunctival injection CV: regular rhythm, no murmur appreciated, extremities well-perfused, no LE edema Resp: CTABL, no wheezes/rales/rhonchi appreciated, no increased work of breathing MSK: tenderness of chest wall just above sternum Neuro: AOx4, no focal neurological deficits appreciated Discharge Data Allergies Allergy/AdvReac Type Severity Reaction Status Date / Time Penicillins AdvReac Unknown Unverified 03/20/21 21:41 Consultations 03/20/21 23:57 ED Decision to Admit Stat 03/21/21 02:34 Consult Cardiology Routine Ordered Studies 03/20/21 21:11 CT angio chest PE protocol Urgent Hospital Course (1) Precordial chest pain: Chest pain CTA chest was negative for PE, and EKG was without ischemic change (more detail below). Cardiology was consulted and felt patient's chest pain was not cardiac in origin, and that further cardiac workup was not indicated in the absence of severe, persistent, or worsening symptoms. Patient's symptoms were suspected to be secondary to a mild upper respiratory viral cause, or a musculoskeletal cause. Patient's symptoms completely resolved within a few hours of admission. Patient was discharged on the day of admission in stable condition with PCP follow-up arranged. AV dae blockade Patient was noted to have a variable AV dae blockade on serial EKGs. Workup for tick-borne illness was negative. Cardiology was consulted and felt that further information about patient's reported history of muscular dystrophy was the likely cause of patient's AV conduction abnormalities. Cardiology also noted that patient's presenting symptoms were unrelated to patient's arrhythmia, and that patient was asymptomatic from an arrhythmia standpoint. Per cardiology, if patient truly carries the diagnosis of muscular dystrophy, then pacemaker placement would be indicated due to the unpredictability of progression from 1st and 2nd degree AV block to 3rd degree AV block in patients with AV conduction abnormalities secondary to muscular dystrophy. Cardiology also felt that patient was in no immediate danger and could safely be discharged while records related to patient's reported muscular dystrophy history were obtained in order to gain diagnostic clarity prior to consideration of pacemaker placement. Patient was discharged on the day of admission, as above. A records release request was sent to [facility] in [place], where patient's muscular dystrophy care had been provided. Records will be forwarded to [facility] and [facility], and follow-up was arranged with Dr. Oro for five days post-discharge. Consideration of repeat lyme testing on an outpatient basis was encouraged, though felt to be unlikely the source of patient's arrhythmia. Alcohol use disorder, hepatic steatosis Patient endorsed drinking six or more malt liquors each day. Patient was noted with a mild transaminitis, and hepatic steatosis was incidentally found on chest CTA. PCP follow-up was recommended. Total Time Total Time Spent Total Time Spent (In Minutes): <30 Discharge Plan Discharge Items Patient Disposition: Home - Self-Care Reason For Visit: CHEST PAIN Discharge Diagnosis: Rib strain Condition on Discharge: Fair Activity: Resume your previous activity Non-emergency contact: Primary Care Provider Call non-emergency contact if: your symptoms worsen Follow-up/Referrals: Juan Jose Oro MD [Resident] - PCP,NO [Primary Care Provider] - Diet: Regular Addtl Attending Provider Instructions: You were admitted to the hospital for chest pain. We think your chest pain was due to rib strain, and should gradually get better on its own. As previously discussed, we found an abnormal heart rhythm, which might require pacemaker p lacement given your history of muscular dystrophy. We will set you up to see Dr. Oro with [facility] so he can help you navigate the next steps. A discharge summary will be sent to your primary care physician to ensure continuity of care. Please bring this discharge summary with you to your next office appointment so that your provider can review it at that time. Follow-up appointments: You have an appointment with Dr. Oro on March 25 at 1:10pm. This will at [facility]'s [facility], which is located at [address] [place] [address], [address], in [place]. If you are unable to make this appointment, or have any other questions, their office can be reached at . Keep all your follow-up appointments as already scheduled. If you cannot make an appointment, notify your provider. Medications: Your medication list has been reviewed and reconciled upon discharge to ensure accuracy and continuity of care. An updated list of all your medications is included with your hospital discharge paperwork. Please review this list closely, and make note of any changes. Take your medications as instructed; do not skip a dose of your medicines. Make sure all of your doctors know every medicine you are taking (including hygq-xav-udwuace medicines, vitamins, and supplements). Call your primary care provider before taking any new medicines (including stpe-vcq-lftkipz medicines, vitamins, and supplements), because some of these may interact with your current medications, or may make your symptoms worse. Tell your primary care provider if you cannot afford your medications. CONTACT YOUR PRIMARY CARE PROVIDER if you experience any of the following: Fainting, lightheadedness, or dizziness Difficulty following your treatment plan, or difficulty taking medications CALL 911 OR GO TO THE EMERGENCY DEPARTMENT if you experience any of the following: Sudden, severe abdominal pain or nausea/vomiting Severe chest pain, or chest pain that radiates (moves) to your jaw or arm Sudden, severe shortness of breath or difficulty breathing Thank you for allowing us to participate in your care. Pending Studies at Discharge: No Stand-Alone Forms: My [facility] Medications and DC Order Prescriptions: Continued fluoxetine 20 mg Capsule 40 mg PO DAILY RF: 0 Discharge Orders: Discharge Order (Routine); Ordered 03/21/21 Ordered By: Juan Jose Oro Admission Data Admit Date/Time: 03/21/21 01:09 Attending Provider: Deacon Bond Admit Provider: Joann Eng Primary Care Provider: PCP,NO Other Providers: Jay Umaña ; James Lawson Other Interventions: Discharge Summary Assessment (RN) Last Done: 03/21/21 12:41 Supervising Physician Co-Signing Physician Notes I personally examined the patient and verified all bowen points of history and exam, discussed case, and agree with decision making with Dr Villalba Feeling okay overall. Chest pain still there off and on, but less intense than before. Vitals noted, in general he is awake and alert pleasant no distress. HEENT normocephalic atraumatic mucous membranes moist. Breathing unlabored no accessory muscle use good effort. Left upper ribs somewhat stuck in inhalationdeep palpation reproduces chest pain exactly. Inhibitory pressure/respiratory assist done with some improvement in range of motion. Case discussed with cardiology as well. Chest painalmost certainly rib relatedOMT done, discussed rib etiology. Stable for home. Cardiac rhythm issuesnothing urgent, asymptomatic, but if it does in fact relate to his muscular dystrophy, as cardiology noted he may warrant a pacemaker. Obtaining old records, plugged in for close follow-up with R2 at [facility] [address] medicine, and cardiology. Elevated inflammatory markersnonspecificnothing really appearing consistent with Lyme right now, Lyme screen is negative. Given we are in an endemic area, R2 is going to reevaluate the need to repeat Lyme testing at an outpatient follow-up later this coming week, and continue to follow-up on things if Lyme is not the etiology. Steatohepatitiscould be alcoholic, could be lifestyle, could be both. Discussed the alcohol implications with patient today, he will have ongoing follow-up with our to in the office. stable for home Resident Activity Tracking Resident Involvement: Resident Care Provided Care Provided: Adult Hospital Medicine
--- NOTE | 2021-03-21 16:25 | Billing Data ---
Date of Service March 21, 2021 Coding Level of Care Code 49438 OBS Care - Discharge
--- NOTE | 2021-03-22 00:23 | Billing Data ---
Date of Service March 22, 2021 Coding Level of Care Code INT OBSERVATION CARE 70M LVL 3
== END 2021-03-21 13:45 | disposition home or self-care (01) ==
LOC: ED 19:58 → 2W 19:58 → SUATTDRO 03-21 01:09 → 2W 03-21 01:50